=== PATIENT | male | born 1970 | race Caucasian/White ===

== ENCOUNTER 2017-08-24 10:09 | Day surgery (SDC) | payer BC, OTHER ==
[2017-08-23 08:25] VITALS: BMI 33.5
[~2017-08-24 10:09] MED LIST: LACTATED RINGERS 1,000 ML IV SCH
[2017-08-24 10:56] VITALS: RESP 16; TEMP 97.2
--- NOTE | 2017-08-24 12:01 | P.PCN ---
Date of Procedure: 08/24/17 Procedure(s) Performed: BRIEF HISTORY: Patient is a 47-year-old pleasant white male, scheduled for an elective colonoscopy as a part of evaluation of change in bowel habits and family history of colon cancer. He has maternal aunt and uncle diagnosed with colon cancer in his 50s and 60s respectively. PROCEDURE PERFORMED: Colonoscopy. PREOPERATIVE DIAGNOSIS: Change in Bowel habits and family history of colon cancer. IV sedation per Anesthesia. PROCEDURE: After informed consent was obtained, the patient, was brought into the endoscopy unit. IV sedation was administered by Anesthesia under continuous monitoring. Digital rectal examination was normal. Initially the Olympus CF- 160 flexible video colonoscope was then inserted in the rectum, gradually advanced into the cecum without any difficulty. Careful examination was performed as the scope was gradually being withdrawn. Ileocecal valve and the appendiceal orifice were visualized and appeared normal. Prep was excellent. Mucosa of the cecum, ascending colon, transverse colon, descending colon, sigmoid colon, and rectum appeared normal. Retroflexion was performed in the rectum and no lesions were seen. The patient tolerated the procedure well. IMPRESSION: Normal-appearing colon from rectum to cecum with no evidence of colorectal neoplasia. RECOMMENDATIONS: Findings of this examination were discussed with the patient as well as his family. He was advised to have a repeat screening colonoscopy in 5 years from now because of the family history of colon cancer..
[2017-08-24 12:29] VITALS: BP 125/76; PULSE 62
== END 2017-08-24 12:45 | disposition home or self-care (01) ==
LOC: ORWHC2ENDO 10:09
PROVIDERS: ATTEND Internal Medicine Gastroenterology
DX: R19.4 Change in bowel habit (principal); Z80.0 Family history of malignant neoplasm of digestive organs; K21.9 Gastro-esophageal reflux disease without esophagitis; Z79.1 Long term (current) use of non-steroidal anti-inflammatories (NSAID); Z79.891 Long term (current) use of opiate analgesic; Z79.899 Other long term (current) drug therapy; Z87.891 Personal history of nicotine dependence
CPT/HCPCS: 45378

== ENCOUNTER 2020-10-12 07:06 | Emergency (ER) | payer OTHER ==
[2020-10-12 07:13] VITALS: BP 150/91; PULSE 65; RESP 16; TEMP 98.3
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
[2020-10-12] MEDS ORDERED: DIPH,PERTUS(ACELL)TETVAC-LF 0.5 ML VIAL IM ONE (08:47)
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
[2020-10-12] MEDS ORDERED: CYCLOBENZAPRINE 10MG STARTER 3 TAB BTL PO STA (09:31)
[2020-10-12] MEDS ORDERED: HYDROcodone/APAP 5-325MG 1 EACH TAB PO STA (09:31)
== END 2020-10-12 09:54 | disposition home or self-care (01) ==
LOC: EC 07:06
DX: S16.1XXA Strain of muscle, fascia and tendon at neck level, initial encounter (principal); Z23 Encounter for immunization; V48.5XXA Car driver injured in noncollision transport accident in traffic accident, initial encounter; Y93.89 Activity, other specified; Y92.411 Interstate highway as the place of occurrence of the external cause
CPT/HCPCS: 72125; 90471; 90715; 99284

== ENCOUNTER → 2021-04-13 | Outpatient (CLI) | payer OTHER ==
--- NOTE | 2021-04-13 18:47 | CONS ---
CONSULTATION DATE OF SERVICE: 04/13/2021 This 51-year-old gentleman has been re-evaluated in Sleep Center for his sleep problems and sleepiness during the day. HISTORY OF PRESENT ILLNESS/SLEEP-WAKE EVALUATION: I saw this patient in 2015. At that time we did a sleep study which showed that he had extremely severe sleep apnea with apnea-hypopnea index 41.4 with oxygen desaturation to 79.5%. The patient was treated with CPAP and treatment was effective. At present he has practically not used the machine for the last year. His sleep schedule is from 11:30 p.m. until 6 a.m. He snores and has witnessed episodes of stopped breathing during sleep, episodes of gasping for air. Usually no problems with falling asleep at night. No history of hypnagogic hallucinations or sleep paralysis. During the day, the patient is on Adderall 30 mg twice a day, which is the maximal dose of medications for ADHD, and with this regimen of medication his [place] Sleepiness Scale is 7. Without medications he feels extremely sleepy which indicates the possibility of an additional sleep disorder like narcolepsy, although no history of any cataplexy. The patient has problems with memory and concentration. He also mentions sexual dysfunction. I checked the patient's CPAP supplies; machine at the pressure of 10 cm of water. Usage is only 14/365 nights. High leak at 34 L/minute. The patient has a So FX medium-sized nasal pillow mask, which is in very bad shape and very old. PAST MEDICAL HISTORY: Positive for ADHD, hand arthritis, feet arthritis, some digestion problems in the past with collection of gas. PAST SURGICAL HISTORY: None. SOCIAL HISTORY: Positive for smoking for about 20 years; quit 7 years ago. Alcohol consumption: None at the present time. MEDICATIONS: [place] 1000 mg 3 times a day, Adderall 30 mg twice a day. FAMILY HISTORY: Heart problems, hypertension, cancer, diabetes. REVIEW OF SYSTEMS: No fevers. No double vision. No recent chest pain. No shortness of breath. No abdominal pain. No bleeding episodes. No blood in the urine. No seizure episodes. At present without machine: Loud snoring, tiredness and significant sleepiness during the day if not taking Adderall. PHYSICAL EXAMINATION: GENERAL APPEARANCE: A pleasant gentleman without distress. VITAL SIGNS: BP 140/91, HR 63, RR 15, height 5 feet 10 inches, weight 231.6, body mass index 32.6, temperature 97.5, oxygen saturation at room air 97%. HEENT: PERRLA, EOMI, evaluation of oropharynx showed tongue protrudes midline. Extremely low position of soft palate; Mallampati IV. NECK: Supple, no JVD. Thyroid is not palpable. LUNGS: Clear to percussion and to auscultation. Good air exchange. No wheezing or rhonchi. HEART: S1, S2 regular. No murmurs, gallops, or rubs. ABDOMEN: Soft and nontender. Bowel sounds are present. No organomegaly appreciated. EXTREMITIES: No clubbing or cyanosis. ENVELOPE MACHINE ADJUSTER: Awake, alert, and oriented X3. Cranial nerves 2 to 7 intact. There is no fasciculation or atrophy. noted. No focal deficits observed. IMPRESSION: 1. Severe obstructive sleep apnea-hypopnea syndrome with apnea-hypopnea index 41 documented by polysomnogram in 2016. The patient has not used CPAP equipment for about year. He has sleepiness, snoring, stopped breathing episodes during sleep witnessed by family. 2. History of attention deficit hyperactivity disorder. 3. Extremely high sleepiness during the day without Adderall. The patient is on Adderall at the present time for ADHD. Differential diagnosis should include possibility of narcolepsy without cataplexy. 4. History of arthritis of hands. 5. History of arthritis of feet. 6. Mild obesity. BMI 32.6. 7. History of digestion problems. PLAN: 1. Repeat CPAP titration for correction of respiratory abnormalities during sleep with a following multiple sleep latency test for objective evaluation of patient's symptoms of significant excessive daytime sleepiness for possible narcolepsy. Naps should be done without Adderall during the day. 2. Watching and losing weight. 3. Prescription for all necessary CPAP supplies. 4. No driving if feeling sleepiness. Thank you very much for referring this patient for consultation. Sincerely, Beau Whatley MD, PhD, FAASM Diplomat of [place] [employer] Sleep Medicine Board of [place] [employer] Medicine Sole Splitter of [facility] [place] MMODL / BOBN: [id number] /
== END ==
LOC: SLEEP 13:32
PROVIDERS: ATTEND Internal Medicine
DX: G47.33 Obstructive sleep apnea (adult) (pediatric) (principal); E66.9 Obesity, unspecified; F17.200 Nicotine dependence, unspecified, uncomplicated; F90.9 Attention-deficit hyperactivity disorder, unspecified type; M19.071 Primary osteoarthritis, right ankle and foot; M19.072 Primary osteoarthritis, left ankle and foot; M19.041 Primary osteoarthritis, right hand; M19.042 Primary osteoarthritis, left hand; Z87.19 Personal history of other diseases of the digestive system; Z68.32 Body mass index [BMI] 32.0-32.9, adult; Z99.89 Dependence on other enabling machines and devices; Z87.891 Personal history of nicotine dependence
CPT/HCPCS: 99211

== ENCOUNTER → 2021-09-01 | Outpatient (CLI) | payer OTHER ==
--- NOTE | 2021-09-01 18:04 | SFUN ---
SLEEP CENTER FOLLOW UP NOTE DATE OF SERVICE: 09/01/2021 This 51-year-old gentleman has been followed in Sleep Center for treatment of obstructive sleep apnea-hypopnea syndrome and for symptoms of excessive sleepiness during the day. The patient continues to use his CPAP equipment during the day. Two weeks ago he had a CPAP night with following multiple sleep latency test, and I discussed results of his sleep studies with the patient in detail. During the night, his respiration was under full control with the CPAP, and the patient slept well for 6 hours and 15 minutes. Multiple sleep latency test on the following day showed short sleep latency, only 5.4 minutes, with two sleep-onset REM periods, which indicates possibly narcolepsy. At present the patient is on treatment with Adderall 30 mg twice a day for ADHD and he feels his alertness most of the day is under control with this medication, but in the evening he is falling asleep, even sometimes while talking to his . I checked his CPAP unit. CPAP pressure is 10 cm of water, usage 03/28 nights. Average usage is only 2.9 hours per night. Leak is 16 L/minute. Apnea-hypopnea index is 5.0, which is borderline. MEDICATIONS: 1. Adderall 30 mg twice a day. 2. [place] 1000 mg 3 times a day. PHYSICAL EXAMINATION: GENERAL: Pleasant patient in no distress. VITAL SIGNS: BP 138/98, HR 74, RR 16, height 5 feet 11 inches, weight 235 pounds, body mass index 32.9, temperature 98.7, oxygen saturation at room air 98%. HEENT: PERRLA, EOMI, evaluation of oropharynx showed tongue protrudes midline. Extremely low position of soft palate; Mallampati IV. NECK: Supple, no JVD. Thyroid is not palpable. LUNGS: Clear to percussion and to auscultation. Good air exchange. No wheezing or rhonchi. HEART: S1, S2 regular. No murmurs, gallops, or rubs. ABDOMEN: Soft and nontender. Bowel sounds are present. No organomegaly appreciated. EXTREMITIES: No clubbing or cyanosis. CREATIVE ARTS MUSIC THERAPIST: Awake, alert, and oriented X3. Cranial nerves 2 to 7 intact. There is no fasciculation or atrophy. noted. No focal deficits observed. IMPRESSION: 1. Multiple sleep latency test showed short sleep latency, 5.4 minutes, with two sleep- onset REM periods, which indicates narcolepsy, type 2, without cataplexy. 2. Obstructive sleep apnea-hypopnea syndrome; normal respiration on CPAP. For the last month the patient showed insufficient compliance with CPAP treatment. 3. On treatment with Adderall 60 mg a day; 30 mg in the morning, 30 mg in the middle of the day. Patient is able to control his alertness but feels sleepy late during the day. 4. Periodic limb movements were documented during the sleep study: 36.8 times per hour with only one microarousal/hour. 5. History of attention deficit hyperactivity disorder. 6. History of arthritis of hands and feet. 7. Mild obesity. 8. History of digestion problems. PLAN: 1. Patient should use CPAP equipment every night for the whole night. 2. Consider changing Adderall to 20 mg 3 times a day. 3. Sleep hygiene with regular time in bed for at least 8 hours. 4. No driving if feeling any sleepiness. 5. Follow-up visit in 3 months. 6. The patient had some discomfort with nasal pillow mask. We changed the mask to nasal mask Cesar, large size. Prescription was written. Thank you very much for allowing me to participate in the management of your patient. Sincerely, Beau Whatley MD, PhD, FAASM Diplomat of [place] [employer] Sleep Medicine Board of [place] [employer] of Internal Medicine Director Of Outpatient Services of [facility] [place] MMODL / JAVI: [id number] /
== END ==
LOC: SLEEP 16:14
PROVIDERS: ATTEND Internal Medicine
DX: G47.33 Obstructive sleep apnea (adult) (pediatric) (principal); G47.419 Narcolepsy without cataplexy; G47.61 Periodic limb movement disorder; Z87.39 Personal history of other diseases of the musculoskeletal system and connective tissue; E66.9 Obesity, unspecified; Z87.19 Personal history of other diseases of the digestive system; Z86.59 Personal history of other mental and behavioral disorders; Z99.89 Dependence on other enabling machines and devices; Z68.32 Body mass index [BMI] 32.0-32.9, adult; Z87.891 Personal history of nicotine dependence

== ENCOUNTER → 2022-03-02 | Outpatient (CLI) | payer OTHER ==
--- NOTE | 2022-03-02 16:49 | P.PN ---
Subjective DATE: 03/02/2022 FOLLOW UP VISIT. Patient with obstructive sleep apnea hypopnea syndrome return to sleep center for follow-up visit for treatment of obstructive sleep apnea-hypopnea syndrome and narcolepsy. Information from previous visit have been reviewed. Patient is using PAP equipment , getting PAP supplies in time, sometimes he t akes mask or off during the night. Patient is on treatment with Adderall 30 mg twice a day for preventing excessive daytime sleepiness secondary to narcolepsy. She definitely feels better but still sometimes feels sleepiness during the day. [place] sleepiness scale is 14. I checked information from PAP unit. PAP unit pressure 5-12, average 9.0 cm H2O. Usage is 55% of nights. Leak is 30.8 l/m, which is slightly increased. Apnea Hypopnea Index is 2.6, which is normal. MEDICATIONS:1. Adderall 30 mg twice a day During physical exam: GENERAL: A pleasant patient without any distress. VITAL SIGNS: BP 143/91, HR 77, RR 16 , weight 240.8, temperature 97.5, oxygen saturation at room air 98 % . HEENT: PERRLA, EOMI.low position of soft palate, Mallapati 4 . NECK: Supple. No JVD. LUNGS: Clear to percussion and to auscultation. Good air exchange. No wheezing or rhonchi. HEART: S1, S2 regular. ABDOMEN: Soft and nontender. Slightly obese EXTREMITIES: No clubbing or cyanosis. [employer] WEAPON SYSTEM OPERATOR: Awake, alert, and oriented x3. No focal deficit. Impressions: 1. Obstructive sleep apnea-hypopnea syndrome. Normal respiration while using CPAP, benefiting from treatment. 2. Narcolepsy confirmed by multiple sleep latency test minutes sleep latency 5.4, to sleep onset REM periods. On treatment with Adderall still feels some sleepiness during the day. 3. History of ADHD. 4. Mild obesity. 5. History of arthritis of hands and feet. Plan: 1. Continue using PAP equipment every night for the whole night. Patient promised to follow recommendations 2. To change air filter at least 1-2 times per month. 3. PAP unit should stay lower then position of the head. 4. Advised patient to remove all remaining water from humidifier canister daily and make it dry after each usage. Refill canister with fresh distilled water before each usage. 5. Sleep hygiene with regular time in bed for at least 8 hours. 6. Precautions related to driving. No driving if feel any sleepiness. 7. I will maintain prescription for PAP supplies including mask, tube, filters. 8. Continue treatment with Adderall. Additionally patient will be started on treatment with modafinil 200 mg once a day in the morning. 8. Follow up visit in 4-6 months or earlier if patient has any problems. 9. Watching and losing weight. Thank you very much for allowing me to participate in the management of your patient. Beau Whatley MD, PhD, FAASM. Diplomat of [place] [employer], Sleep Medicine Board by [place] [employer] Medicine Development Trainer of [facility] [place]
== END ==
LOC: SLEEP 16:05
PROVIDERS: ATTEND Internal Medicine
DX: G47.33 Obstructive sleep apnea (adult) (pediatric) (principal); Z99.89 Dependence on other enabling machines and devices; G47.419 Narcolepsy without cataplexy; E66.9 Obesity, unspecified; F90.9 Attention-deficit hyperactivity disorder, unspecified type; M19.071 Primary osteoarthritis, right ankle and foot; M19.072 Primary osteoarthritis, left ankle and foot; M19.041 Primary osteoarthritis, right hand; M19.042 Primary osteoarthritis, left hand

== ENCOUNTER → 2022-08-31 | Outpatient (CLI) | payer OTHER ==
--- NOTE | 2022-08-31 17:30 | P.PN ---
Subjective DATE: [] FOLLOW UP VISIT. Patient with obstructive sleep apnea hypopnea syndrome and narcolepsy return to sleep center for follow-up visit. Information from previous visit have been reviewed. Presently patient is on treatment with Adderall 30 mg twice a day, but still feels sleepiness during the day [place] Sleepiness Scale increased to 13. He is using CPAP equipment, but not every night. I checked information from PAP unit. Patient did not bring his machine. Information from [place] is available only until and of October 2021. PAP unit pressure 5-12, average 9.0 cm H2O. Usage is 40 % , average 3 hours per night. Leak is high 38 l/m. Apnea Hypopnea Index is 3.3, which is normal. MEDICATIONS:1. Adderall 30 mg twice a day 2. [place] [address] milligrams 3 times a day During physical exam: GENERAL: A pleasant patient without any distress. VITAL SIGNS: BP 134/90, HR 78, RR 16, weight 248, temperature 98.2, oxygen saturation at room air 97 % . HEENT: PERRLA, EOMI.low position of soft palate, Mallapati 4 . NECK: Supple. No JVD. LUNGS: Clear to percussion and to auscultation. Good air exchange. No wheezing or rhonchi. HEART: S1, S2 regular. ABDOMEN: Soft and nontender. Obese EXTREMITIES: No clubbing or cyanosis. CCO & PRESIDENT: Awake, alert, and oriented x3. No focal deficit. Impressions: 1. Obstructive sleep apnea-hypopnea syndrome. Patient demonstrated low compliance with treatment, but benefiting from treatment. 2. Narcolepsy confirmed by multiple sleep latency test. Mean sleep latency was 5.4 minutes with to sleep onset REM periods. 3. History of periodic limb movements. 4. History of ADHD. 5. History of hands and feet arthritis. 6. Mild obesity. I discussed with patient necessity to use CPAP equipment every night for the whole night, patient promised to follow recommendations. I explained to the patient about the [employer] program on his question. Plan: 1. Continue using PAP equipment every night for the whole night. 2. Prescription for modafinil 200 mg once a day in the morning. 3. PAP unit should stay lower then position of the head. 4. Advised patient to remove all remaining water from humidifier canister daily and make it dry after each usage. Refill canister with fresh distilled water before each usage. 5. Sleep hygiene with regular time in bed for at least 8 hours. 6. Precautions related to driving. No driving if feel any sleepiness. 7. I will maintain prescription for PAP supplies including mask, tube, filters. 8. Follow up visit in 4 months or earlier if patient has any problems. Patient should bring his CPAP unit for follow-up appointment. 9. Watching and losing weight. Thank you very much for allowing me to participate in the management of your patient. Beau Whatley MD, PhD, FAASM. Diplomat of [place] [employer] Medicine, Sleep Medicine Board by [place] [employer] Medicine [employer] [facility] [place]
== END | disposition home or self-care (01) ==
LOC: SLEEP 16:59
PROVIDERS: ATTEND Internal Medicine
DX: G47.33 Obstructive sleep apnea (adult) (pediatric) (principal); G47.419 Narcolepsy without cataplexy; Z86.59 Personal history of other mental and behavioral disorders; Z87.39 Personal history of other diseases of the musculoskeletal system and connective tissue; Z99.89 Dependence on other enabling machines and devices; Z87.891 Personal history of nicotine dependence

== ENCOUNTER → 2023-01-03 | Outpatient (CLI) | payer OTHER ==
--- NOTE | 2023-01-03 17:03 | P.PN ---
Subjective DATE: 01/03/2023 FOLLOW UP VISIT. Patient with obstructive sleep apnea hypopnea syndrome and narcolepsy return to sleep center for follow-up visit. Patient is on modafinil 200 mg in the morning and Adderall 15 mg several times a day but recently patient was not able to get Adderall. Information from previous visit have been reviewed. Patient is using PAP equipment , but not every night The patient does not have significant problems with the mask, PAP unit and humidification. [place] sleepiness scale is 15, which indicates sleepiness. I checked information from PAP unit. PAP unit pressure 5-12 cm H2O. Usage is 30% % for more then 4 hours, average 4 hours per night. Leak is 26 l/m, which is in acceptable range. Apnea Hypopnea Index is 5.3, which is borderline. MEDICATIONS:1. Modafinil 200 mg in the morning 2. [place] 3. Adderall During physical exam: GENERAL: A pleasant patient without any distress. VITAL SIGNS: BP 134/88, HR 72, RR 12 , weight 248, temperature 97.7, oxygen saturation at room air 98 % . HEENT: PERRLA, EOMI.low position of soft palate, Mallapati 4 . NECK: Supple. No JVD. LUNGS: Clear to percussion and to auscultation. Good air exchange. No wheezing or rhonchi. HEART: S1, S2 regular. ABDOMEN: Soft and nontender. Slightly obese EXTREMITIES: No clubbing or cyanosis. CLINICAL PHARMACY TECHNICIAN: Awake, alert, and oriented x3. No focal deficit. Impressions: 1. Obstructive sleep apnea-hypopnea syndrome. Patient demonstrated shortening compliance with treatment, benefiting from treatment. 2. Narcolepsy, confirmed by M SLT 5.4 minutes with 2 loose sleep onset REM periods. 3. History of ADHD. 4. History of periodic limb movements. 5. Mild obesity, BMI 36. 6. History of hands and feet arthritis. Plan: 1. Continue using PAP equipment every night for the whole night, patient promised to follow recommendations. 2. I will increase the dose of modafinil to 400 mg in the morning. 3. PAP unit should stay lower then position of the head. 4. Advised patient to remove all remaining water from humidifier canister daily and make it dry after each usage. Refill canister with fresh distilled water before each usage. 5. Sleep hygiene with regular time in bed for at least 8 hours. 6. Precautions related to driving. No driving if feel any sleepiness. 7. I will maintain prescription for PAP supplies including mask, tube, filters. 8. Watching and losing weight. 9. Follow up visit in 6 months or earlier if patient has any problems. Thank you very much for allowing me to participate in the management of your patient. Beau Whatley MD, PhD, FAASM. Diplomat of [place] [employer] Medicine, Sleep Medicine Board by [place] [employer] Butter Maker of [facility] [place]
== END ==
LOC: 3 N SLEEP 16:22
PROVIDERS: ATTEND Internal Medicine
DX: G47.33 Obstructive sleep apnea (adult) (pediatric) (principal); G47.419 Narcolepsy without cataplexy; F90.9 Attention-deficit hyperactivity disorder, unspecified type; G47.61 Periodic limb movement disorder; E66.9 Obesity, unspecified; Z68.36 Body mass index [BMI] 36.0-36.9, adult; M19.049 Primary osteoarthritis, unspecified hand; Z99.89 Dependence on other enabling machines and devices; Z87.891 Personal history of nicotine dependence; M19.079 Primary osteoarthritis, unspecified ankle and foot
CPT/HCPCS: 99212

== ENCOUNTER → 2023-07-11 | Outpatient (CLI) | payer OTHER ==
--- NOTE | 2023-07-11 17:38 | P.PN ---
Subjective DATE: 07/11/2023 FOLLOW UP VISIT. Patient with obstructive sleep apnea hypopnea syndrome and narcolepsy return to sleep center for follow-up visit. Information from previous visit have been reviewed. Patient is on treatment with modafinil 200 mg 2 tablets in the morning and Adderall Patient is using PAP equipment every night for the whole night, getting PAP supplies in time. The patient does not have significant problems with the mask, PAP unit and humidification. [place] sleepiness scale is slightly increased to 12. I checked information from PAP unit. PAP unit pressure 4 cm H2O. Usage is 50 % of the nights, average 3.2 hours per night. Leak is 14 l/m, which is in acceptable range. Apnea Hypopnea Index is borderline 5.5. MEDICATIONS:1. Modafinil 200 mg 2 tablets in the morning 2. Adderall 30 mg twice a day 3. [place] During physical exam: GENERAL: A pleasant patient without any distress. VITAL SIGNS: BP 144/90, HR 82, RR 16 , weight 249.8, temperature 98.2, oxygen saturation at room air 98 % . HEENT: PERRLA, EOMI.low position of soft palate, Mallapati 4 . NECK: Supple. No JVD. LUNGS: Clear to percussion and to auscultation. Good air exchange. No wheezing or rhonchi. HEART: S1, S2 regular. ABDOMEN: Soft and nontender.[] EXTREMITIES: No clubbing or cyanosis. SAW SUPERINTENDENT: Awake, alert, and oriented x3. No focal deficit. Impressions: 1. Obstructive sleep apnea-hypopnea syndrome. Patient demonstrated slightly low compliance with treatment, benefiting from treatment. 2. Narcolepsy, confirmed by M SLT 5.4 minutes with 2 sleep onset REM periods. 3. History of ADHD. 4. History of periodic limb movements. 5. Mild obesity. 6. History of hands and feet arthritis. Plan: 1. Continue using PAP equipment every night for the whole night. 2. To change air filter at least 1-2 times per month. 3. PAP unit should stay lower then position of the head. 4. Advised patient to remove all remaining water from humidifier canister daily and make it dry after each usage. Refill canister with fresh distilled water before each usage. 5. Sleep hygiene with regular time in bed for at least 8 hours. 6. Precautions related to driving. No driving if feel any sleepiness. 7. I will maintain prescription for PAP supplies including mask, tube, filters. 8. Follow up visit in 6 months or earlier if patient has any problems. 9. Watching and losing weight. 10. Continue modafinil 400 mg in the morning, prescription was written. Thank you very much for allowing me to participate in the management of your patient. Beau Whatley MD, PhD, FAASM. Diplomat of [place] Board of Sleep Medicine, Sleep Medicine Board by [place] [employer] of Internal Medicine Bridge Instructor of [facility] [place]
== END ==
LOC: 3 N SLEEP 16:05
PROVIDERS: ATTEND Internal Medicine
DX: G47.33 Obstructive sleep apnea (adult) (pediatric) (principal); G47.419 Narcolepsy without cataplexy; E66.9 Obesity, unspecified; F90.9 Attention-deficit hyperactivity disorder, unspecified type; G47.61 Periodic limb movement disorder; M13.872 Other specified arthritis, left ankle and foot; M13.871 Other specified arthritis, right ankle and foot; M13.842 Other specified arthritis, left hand; M13.841 Other specified arthritis, right hand; Z99.89 Dependence on other enabling machines and devices; Z87.891 Personal history of nicotine dependence
CPT/HCPCS: 99212

== ENCOUNTER → 2024-01-09 | Outpatient (CLI) | payer OTHER ==
[2024-01-09 16:45] VITALS: BP 131/86; PULSE 82; RESP 16; TEMP 98.2
--- NOTE | 2024-01-09 17:08 | P.PROGSL ---
Subjective DATE: 01/09/2024 FOLLOW UP VISIT. Patient with obstructive sleep apnea hypopnea syndrome return to sleep center for follow-up visit. Patient is on treatment with CPAP. Information from previous visit have been reviewed. Patient is on treatment with modafinil and Adderall for narcolepsy. No side effects from medications. Patient is using PAP equipment every night for the whole night, getting PAP supplies in time. The patient does not have significant problems with the mask, PAP unit and humidification. [place] sleepiness scale is 9. I checked information from PAP unit. PAP unit pressure 5 cm H2O. Usage is most of the nights, but only for about 3.3 hours per night . Leak is 24 l/m, which is in acceptable range. Apnea Hypopnea Index is slightly increased to 6.7, which is normal. MEDICATIONS:1. Adderall 30 mg once a day 2. Modafinil 200 mg 2 tablets in the morning 3. [place] During physical exam: GENERAL: A pleasant patient without any distress. VITAL SIGNS: Please see below. Weight is 250 pounds. HEENT: PERRLA, EOMI.low position of soft palate, Mallapati 4 . NECK: Supple. No JVD. LUNGS: Clear to percussion and to auscultation. Good air exchange. No wheezing or rhonchi. HEART: S1, S2 regular. ABDOMEN: Soft and nontender.[] EXTREMITIES: No clubbing or cyanosis. X RAY CONSULTANT: Awake, alert, and oriented x3. No focal deficit. Impressions: 1. Obstructive sleep apnea-hypopnea syndrome. Patient demonstrated borderline compliance with treatment, benefiting from treatment. 2. Narcolepsy, confirmed by multiple sleep latency test which showed mean sleep latency of 5.4 minutes and 2 sleep onset REM. Sleepiness is on controll with medications. 3. History of ADHD. 4. History of periodic limb movements. 5. Mild obesity, BMI 35.8. 6. History of periodic limb movements. 7. History of hands and feet arthritis. Plan: 1. Continue using PAP equipment every night for the whole night. 2. To change air filter at least 1-2 times per month. 3. PAP unit should stay lower then position of the head. 4. Advised patient to remove all remaining water from humidifier canister daily and make it dry after each usage. Refill canister with fresh distilled water before each usage. 5. Sleep hygiene with regular time in bed for at least 8 hours. 6. Precautions related to driving. No driving if feel any sleepiness. 7. I will maintain prescription for PAP supplies including mask, tube, filters. 8. Follow up visit in 6 months or earlier if patient has any problems. 9. Watching and losing weight. 10. I will continue to maintain prescription for modafinil 200 mg 2 tablets in the morning. Thank you very much for allowing me to participate in the management of your patient. Beau Whatley MD, PhD, FAASM. Diplomat of [place] Board of Sleep Medicine, Sleep Medicine Board by [place] Board of Internal Medicine General Assistant of [facility] [place] Objective - Vital Signs Vital Signs: Vital Signs Temp 98.2 F 01/09/24 16:43 Pulse 82 01/09/24 16:43 Resp 16 01/09/24 16:43 BP 131/86 01/09/24 16:43 Pulse Ox 97 01/09/24 16:43 FiO2 Intake & Output 01/08/24 01/09/24 01/09/24 18:59 06:59 18:59 Weight 113.398 kg Home Medications: Home Medications Medication Instructions Recorded Confirmed Type Dextroamphetamine/Amphetamine 30 mg PO DAILY 08/23/17 01/09/24 History [Adderall] HYDROcodone/APAP 10-325MG [[place] 1 tab PO Q6H PRN 08/23/17 01/09/24 History 10-325] Ibuprofen [Motrin] 800 mg PO Q6H PRN 08/23/17 08/24/17 History Viagra 1 tab PO DAILY PRN 08/23/17 History Cyclobenzaprine [Flexeril] 10 mg PO TID PRN #12 tablet 10/12/20 Rx modafiniL [Provigil] 200 mg PO DAILY 01/09/24 01/09/24 History
== END ==
LOC: 3 N SLEEP 16:10
PROVIDERS: ATTEND Internal Medicine
DX: G47.33 Obstructive sleep apnea (adult) (pediatric) (principal); G47.419 Narcolepsy without cataplexy; G47.52 REM sleep behavior disorder; F90.9 Attention-deficit hyperactivity disorder, unspecified type; M19.049 Primary osteoarthritis, unspecified hand; M19.079 Primary osteoarthritis, unspecified ankle and foot; E66.9 Obesity, unspecified; Z68.35 Body mass index [BMI] 35.0-35.9, adult; Z87.39 Personal history of other diseases of the musculoskeletal system and connective tissue; Z99.89 Dependence on other enabling machines and devices; Z87.891 Personal history of nicotine dependence
CPT/HCPCS: 99212

== ENCOUNTER 2024-01-11 15:12 | Emergency (ER) | payer OTHER ==
[2024-01-11 15:27] VITALS: TEMP 97.9
--- NOTE | 2024-01-11 15:35 | ED ---
Chest Pain HPI - General Source: patient, RN notes reviewed Mode of arrival: ambulatory Limitations: no limitations - History of Present Illness MD Complaint: chest pain <Katheryn Mendoza - Last Filed: 01/11/24 15:34> - General Source: RN notes reviewed, old records reviewed Mode of arrival: ambulatory Limitations: no limitations - History of Present Illness MD Complaint: chest pain -: week(s) Onset: during rest, during exertion Pain Location: left chest Pain Radiation: none Severity: moderate Severity scale (1-10): 4 Quality: aching Consistency: constant Improves With: nothing Anginal Symptoms: diaphoresis, dyspnea Treatments Prior to Arrival: none <Diogo Quevedo - Last Filed: 01/22/24 00:22> - General Chief Complaint: Chest Pain Stated Complaint: L rib pain Time Seen by Provider: 01/11/24 15:34 - History of Present Illness Initial Comments: Quick Note: This is a 53-year-old male who presents to the emergency department for pain over the left rib cage. States that it started 2 weeks ago. Pain is worse with movement and with coughing. Denies any injuries. Also denies any nausea or shortness of breath. (Katheryn Mendoza) This is a 53-year-old male with left-sided rib cage pain left-sided abdominal pa in left-sided chest pain worse with movement worse with coughing no significant shortness of breath no recent fevers or travel history (Diogo Quevedo) - Related Data Home Medications Medication Instructions Recorded Confirmed Dextroamphetamine/Amphetamine 30 mg PO BID@0700,1700 08/23/17 01/11/24 [Adderall] HYDROcodone/APAP 10-325MG [[place] 1 tab PO QID 08/23/17 01/11/24 10-325] modafiniL [Provigil] 400 mg PO DAILY 01/09/24 01/11/24 Allergies Allergy/AdvReac Type Severity Reaction Status Date / Time No Known Allergies Allergy Verified 01/11/24 18:16 Review of Systems ROS Other: All systems not noted in ROS Statement are negative. <Katheryn Mendoza - Last Filed: 01/11/24 15:34> ROS Other: All systems not noted in ROS Statement are negative. <Diogo Quevedo - Last Filed: 01/22/24 00:22> ROS Statement: Those systems with pertinent positive or pertinent negative responses have been documented in the HPI. EKG Findings - EKG Comments: EKG Findings:: EKG is sinus bradycardia 58 NV 170 QRS 106 QTc 399 - EKG Results: EKG: interpreted by ERMD <Diogo Quevedo - Last Filed: 01/22/24 00:22> Past Medical History Past Medical History: GERD/Reflux Additional Past Medical History / Comment(s): RECENT TESTING FOR SLEEP APNEA, UNSURE OF RESULTS, states shelly leg nerve pain History of Any Multi-Drug Resistant Organisms: None Reported Additional Past Surgical History / Comment(s): EGD Past Anesthesia/Blood Transfusion Reactions: No Reported Reaction Past Alcohol Use History: Rare Past Drug Use History: Marijuana - Past Family History Mother Family Medical History: Cancer Additional Family Medical History / Comment(s): lung,liver,pancreas <Katheryn Mendoza - Last Filed: 01/11/24 15:34> General Exam Limitations: no limitations <Katheryn Mendoza - Last Filed: 01/11/24 15:34> General appearance: alert, in no apparent distress Head exam: Present: atraumatic, normocephalic, normal inspection Eye exam: Present: normal appearance, PERRL, EOMI. Absent: scleral icterus, conjunctival injection, periorbital swelling ENT exam: Present: normal exam, mucous membranes moist Neck exam: Present: normal inspection. Absent: tenderness, meningismus, lymph adenopathy Respiratory exam: Present: normal lung sounds bilaterally. Absent: respiratory distress, wheezes, rales, rhonchi, stridor Cardiovascular Exam: Present: regular rate, normal rhythm, normal heart sounds. Absent: systolic murmur, diastolic murmur, rubs, gallop, clicks GI/Abdominal exam: Present: soft, normal bowel sounds. Absent: distended, tenderness, guarding, rebound, rigid Extremities exam: Present: normal inspection, full ROM, normal capillary refill. Absent: tenderness, pedal edema, joint swelling, calf tenderness Back exam: Present: normal inspection Neurological exam: Present: alert, oriented X3, CN II-XII intact Psychiatric exam: Present: normal affect, normal mood Skin exam: Present: warm, dry, intact, normal color. Absent: rash <Diogo Quevedo - Last Filed: 01/22/24 00:22> - General Exam Comments Initial Comments: Visual Physical Exam Vital signs reviewed General: Well-appearing, nontoxic, no acute distress. Head: Normocephalic, atraumatic Eyes: PERRLA, EOMI ENT: Airway patent Chest: Nonlabored breathing Skin: No visual rash, normal skin tone Neuro: Alert and oriented 3 Musculoskeletal: No gross abnormalities (VoabbyeyKatheryn) Course <Diogo Quevedo - Last Filed: 01/22/24 00:22> Vital Signs 01/11/24 01/11/24 01/11/24 15:25 17:48 21:03 Temperature 97.9 F Pulse Rate 65 60 86 Respiratory 16 18 18 Rate Blood Pressure 129/83 141/80 136/74 O2 Sat by Pulse 98 100 100 Oximetry - Reevaluation(s) Reevaluation #1: 01/11/24 17:01 Medical records reviewed (Diogo Quevedo) Reevaluation #2: 01/11/24 17:01 Patient remains with symptoms of pain and chest pain here in the ER (Diogo Quevedo) Reevaluation #3: 01/11/24 17:01 Patient informed of results and questions answered (Diogo Quevedo) Reevaluation #4: Was pt. sent in by a medical professional or institution (, PA, DISTRIBUTION FIELD ENGINEER, urgent care, hospital, or fdc...) When possible be specific @ -no Did you speak to anyone other than the patient for history (EMS, parent, family, police, friend...)? What history was obtained from this source @ -no Did you review nursing and triage notes (agree or disagree)? Why? @ -agree Are old charts reviewed (outside hosp., previous admission, EMS record, old EKG, old radiological studies, urgent care reports/EKG's, fdc records)? Report findings @ -yes Differential Diagnosis (chest pain, altered mental status, abdominal pain women, abdominal pain men, vaginal bleeding, weakness, fever, dyspnea, syncope, headache, dizziness, GI bleed, back pain, seizure, CVA, palpatations, mental health, musculoskeletal)? @ -prior EKG interpreted by me (3pts min.). @ -yes X-rays interpreted by me (1pt min.). @ -yes negative for acute disease CT interpreted by me (1pt min.). @ - CT chest with abdomen pelvis is negative for acute disease U/S interpreted by me (1pt. min.). @ -no What testing was considered but not performed or refused? (CT, X-rays, U/S, labs)? Why? @ -none What meds were considered but not given or refused? Why? @ -none Did you discuss the management of the patient with other professionals (professionals i.e. , PA, DISTRIBUTION FIELD ENGINEER, lab, RT, psych nurse, social services coordinator, radiological engineer, teacher, custody officer, bilingual patient support caseworker)? Give summary @ -no Was smoking cessation discussed for >3mins.? @ -no Was critical care preformed (if so, how long)? @ -no Were there social determinants of health that impacted care today? How? (Homelessness, low income, unemployed, alcoholism, drug addiction, transportation, low edu. Level, literacy, decrease access to med. care, correction, rehab)? @ -none Was there de-escalation of care discussed even if they declined (Discuss DNR or withdrawal of care, Hospice)? DNR status @ -no What co-morbidities impacted this encounter? (DM, HTN, Smoking, COPD, CAD, Cancer, CVA, ARF, Chemo, Hep., AIDS, mental health diagnosis, sleep apnea, morbid obesity)? @ -none Was patient admitted / discharged? Hospital course, mention meds given and route, prescriptions, significant lab abnormalities, going to OR and other pertinent info. @ - 53 male found to have evaluation of chest pain here in the ER today. Chest pain and rib pain with no acute cause found. Patient has no acute distress no history of heart disease, troponin negative EKG negative patient can be discharged Discharge Undiagnosed new problem with uncertain prognosis? @ -no Drug Therapy requiring intensive monitoring for toxicity (Heparin, Nitro, Insulin, Cardizem)? @ -no Were any procedures done? @ -no Diagnosis/symptom? @ - Acute, or Chronic, or Acute on Chronic? @ -Acute Uncomplicated (without systemic symptoms) or Complicated (systemic symptoms)? @ -Complicated Side effects of treatment? @ -no Exacerbation, Progression, or Severe Exacerbation? @ -exacerbation Poses a threat to life or bodily function? How? (Chest pain, [place], [place], pneumonia, PE, COPD, DKA, ARF, appy, cholecystitis, CVA, Diverticulitis, Homicidal, Suicidal, threat to staff... and all critical care pts) @ -yes chest pain chest pain (Diogo Quevedo) Reevaluation #5: Differential Chest Pain: Stable Angina, Unstable Angina, STEMI, NSTEMI Aortic Dissection, Pneumothorax, Musculoskeletal, Esophageal Spasm GERD, Cholecystitis, Pancreatitis, Zoster, this is not meant to be an all-inclusive list. (Diogo Quevedo) Chest Pain MDM <Katheryn Mendoza - Last Filed: 01/11/24 15:34> <Diogo Quevedo - Last Filed: 01/22/24 00:22> - MDM I performed the QuickNote portion of this chart. Signed Katheryn Mendoza PA-C. (Katheryn Mendoza) 53 male found to have evaluation of chest pain here in the ER today. Chest pain and rib pain with no acute cause found. Patient has no acute distress no history of heart disease, troponin negative EKG negative patient can be discharged (Diogo Quevedo) Disposition <Katheryn Mendoza - Last Filed: 01/11/24 15:34> Is patient prescribed a controlled substance at d/c from ED?: No Time of Disposition: 21:00 <Diogo Quevedo - Last Filed: 01/22/24 00:22> Clinical Impression: Atypical chest pain, Chest pain Disposition: HOME SELF-CARE Condition: Good Instructions (If sedation given, give patient instructions): Chest Pain (ED), Costochondritis (ED) Referrals: Ariel Horn MD [Primary Care Provider] - 1-2 days
[2024-01-11] MEDS: SODIUM CHLORIDE 0.9% 1,000 ML IV STA (16:53)
[2024-01-11] MEDS: KETOROLAC 15 MG/ML 1 ML VIAL IVP STA (16:54)
[2024-01-11 16:56] LABS: Basophils % (A) 0 %; Eosinophils # (A) 0.2 k/uL (0-0.7); Eosinophils % (A) 3 %; HCT 40.9 % (39.0-53.0); HGB 13.6 gm/dL (13.0-17.5); Lymphocytes # (A) 2.5 k/uL (1.0-4.8); Lymphocytes % (A) 30 %; MCH 30.3 pg (25.0-35.0); MCHC 33.3 g/dL (31.0-37.0); Mean Platelet Volume 7.7; Monocytes # (A) 0.6 k/uL (0-1.0); Monocytes % (A) 7 %; Neutrophils # (A) 4.9 k/uL (1.3-7.7); Neutrophils % (A) 58 %; Platelet Count 337 k/uL (150-450); RDW 12.8 % (11.5-15.5); WBC 8.4 k/uL (3.8-10.6)
--- NOTE | 2024-01-11 17:08 | XR ---
EXAMINATION TYPE: XR ribs LT w pa chest xray DATE OF EXAM: 01/11/2024 3:51 PM CLINICAL INDICATION:Male, 53 years old with history of Pain; [facility] COMPARISON: TECHNIQUE: Frontal and oblique views of the left ribs with frontal chest radiograph. FINDINGS: The ribs have a normal appearance. No evidence of fracture. Overall, the lungs are clear. The cardiac silhouette is normal in size. The remaining osseous structures are intact. IMPRESSION: No pneumothorax, or convincing evidence of displaced/deforming rib fracture.
[2024-01-11 17:09] LABS: ALT 32 U/L (4-49); AST 29 U/L (17-59); African American GFR (CKD) >90 (>60 ml/min/1.73 sqM); Albumin 4.2 g/dL (3.5-5.0); Alkaline Phosphatase 92 U/L (38-126); Anion Gap 8 mmol/L; Blood Urea Nitrogen 16 mg/dL (9-20); Calcium 9.3 mg/dL (8.4-10.2); Carbon Dioxide 22 mmol/L (22-30); Chloride 107 mmol/L (98-107); Glucose 136 mg/dL (74-99); Magnesium 2.1 mg/dL (1.6-2.3); Non-African American GFR(CKD) >90 (>60 ml/min/1.73 sqM); Phosphorus 3.5 mg/dL (2.5-4.5); Potassium 3.9 mmol/L (3.5-5.1); Sodium 137 mmol/L (137-145); Total Bilirubin 0.4 mg/dL (0.2-1.3)
[2024-01-11 17:10] LABS: Partial Thromboplastin Time 25.8 sec (22.0-30.0); Prothrombin Time 11.4 sec (10.0-12.5)
[2024-01-11 17:17] LABS: NT-Pro-B-Type Natriuretic Pept 25 pg/mL
[2024-01-11 17:49] VITALS: RESP 18
--- NOTE | 2024-01-11 20:40 | CT ---
EXAMINATION TYPE: CT angio chest CT DLP: 614.2 mGycm, Automated exposure control for dose reduction was used. DATE OF EXAM: 01/11/2024 5:19 PM COMPARISON: CLINICAL INDICATION:Male, 53 years old with history of pain; right sided chest/abdominal pain TECHNIQUE/CONTRAST: CTA scan of the thorax is performed with IV Contrast, patient injected with 100 mL of Isovue 370, MIP images are created and reviewed these are created on a separate workstation.. FINDINGS: There is adequate contrast bolus and timing. PULMONARY ARTERIES: There is no evidence for a filling defect within the pulmonary vasculature to sug gest acute pulmonary embolism. The pulmonary trunk is enlarged, this can be seen with pulmonary hyper tension. Trunk measures 3.3 CM. AORTA: Mild atherosclerotic calcifications of the aorta and branches. Ascending aorta is 3.9 CM, candy cending is 2.6 CM. Aorta is considered mildly ectatic in its descending segment. No dissection flap is seen. HEART: Normal heart size. No appreciable pericardial effusion. LOWER NECK: No significant findings. MEDIASTINUM: No enlarged nodes by CT size criteria. SOFT TISSUES/AXILLA: Unremarkable soft tissues. No axillary adenopathy. LUNGS/ PLEURA: The lung parenchyma appears unremarkable. AIRWAY: Central airways are patent. MUSCULOSKELETAL: No acute osseous abnormality. Mild disc degeneration changes are present throughout the included thoracolumbar spine. UPPER ABDOMEN: Please see CT abdomen report for findings. IMPRESSION: 1. No evidence of pulmonary embolism. 2. No other acute chest process demonstrated. 3. Enlarged pulmonary trunk can be seen with pulmonary hypertension.
--- NOTE | 2024-01-11 20:46 | CT ---
EXAMINATION TYPE: CT abdomen pelvis w con CT DLP: 1752.7 mGycm, Automated exposure control for dose reduction was used. DATE OF EXAM: 01/11/2024 5:19 PM COMPARISON: None. CLINICAL INDICATION:Male, 53 years old with history of pain; right sided chest/abdominal pain TECHNIQUE: Axial CT of the abdomen and pelvis. Sagittal and coronal reformats were created on a [employer] workstation. Contrast used:100 mL of Isovue 370 with IV Contrast, (none if empty) Oral contrast used: without Oral Contrast (none if empty) FINDINGS: LOWER CHEST: Please see separate CT chest for findings ABDOMEN LIVER: Unremarkable GALLBLADDER AND BILE DUCTS: Unremarkable gallbladder. No biliary ductal dilatation. PANCREAS: Unremarkable. SPLEEN: Unremarkable. ADRENAL GLANDS: Unremarkable. KIDNEYS AND URETERS: Kidneys enhance symmetrically. No evidence of hydronephrosis or visible renal ca lculus. The ureters are unremarkable. PELVIS BLADDER: Moderately distended without otherwise a significant abnormality. REPRODUCTIVE: Prominent prostate measures up to 5.1 cm transversely and causes mild indentation on th e bladder base. ABDOMEN & PELVIS STOMACH AND BOWEL: Stomach and small bowel are nondistended, no evidence of obstruction. The append ix appears within normal limits. Moderate stool throughout the colon without any acute abnormality d emonstrated. PERITONEUM/RETROPERITONEUM: No evidence of pneumoperitoneum or free fluid. VASCULATURE: Mild atherosclerotic calcifications are present throughout the abdominal aorta and its b ranches. No evidence of aortic aneurysm. Portal veins are enhancing. Splenic vein and superior mese nteric vein appear patent. LYMPH NODES: No enlarged nodes by CT size criteria. SOFT TISSUE/ABDOMINAL WALL: No acute abnormality. Small to moderate size fat-containing umbilical her keenan. MUSCULOSKELETAL: No acute osseous abnormalities. Mild degenerative changes. Mild apex right curvatur e of the mid to upper lumbar spine extending into the thoracic region. IMPRESSION: 1. No acute abnormality in the abdomen or pelvis. 2. No evidence of bowel obstruction, free fluid or free air. Normal appendix. 3. Other chronic and likely incidental findings, as described above.
[2024-01-11 21:04] VITALS: BP 136/74; PULSE 86
== END 2024-01-11 21:04 | disposition home or self-care (01) ==
LOC: EC 15:12
DX: R07.89 Other chest pain (principal); R00.1 Bradycardia, unspecified
CPT/HCPCS: 36415; 93005; 85379; 83880; 80053; 83605; 83735; 84100; 84484; 85025; 85610; 85730; 71101; 71275; 74177; 99285; 96374; 96361; J1885; Q9967